=== PATIENT | male | born 1965 | race Caucasian/White ===

== ENCOUNTER → 2016-05-17 | Outpatient (CLI) | payer BC ==
[~2016-05-17] MED LIST: CLR10 PO; GLUC10007 PO; OMEG10007 PO
[2016-05-17 09:47] LABS: BASO % 0.4 %; BASO ABS # 0.02 K/uL (0-0.2); COMPLETE YES; EOS % 2.8 %; HEMATOCRIT 45.8 % (42-52); IG% 0.4 %; LYMPH % 37.9 %; LYMPH ABS # 1.78 K/uL (1.2-3.4); MEAN CELL VOLUME 88.6 fL (80-100); MEAN CORPUSCULAR HEMOGLOBIN 30.2 pg (25-34); MEAN CORPUSCULAR HGB CONC 34.1 g/dl (32-36); MEAN PLATELET VOLUME 12.3 fL (7.4-10.4); MONO % 9.1 %; NEUT % 49.4 %; PLATELET COUNT 219 K/uL (130-400); RED BLOOD COUNT 5.17 M/uL (4.7-6.1)
[2016-05-17 10:00] LABS: CHOLESTEROL/HDL RATIO 6.1; PROSTATE SPECIFIC ANTIGEN 0.598 ng/ml (0.000-4.000)
== END | disposition home or self-care (01) ==
LOC: C.LAB1850 07:32
PROVIDERS: ATTEND Internal Medicine
DX: D64.9 Anemia, unspecified (principal); Z12.5 Encounter for screening for malignant neoplasm of prostate